=== PATIENT | male | born 1965 | race African-American/Black ===

== ENCOUNTER 2020-09-30 21:55 | Emergency (ER) | payer MEDICAID ==
[~2020-09-30] VITALS: Ht 172.7 cm; Wt 77.1 kg
--- NOTE | 2020-09-30 21:55 | NUR ---
PT ARRIVED TO ED BIBA W/ CC INTENTIONAL OVERDOSE. PT TOLD EMS HE TOOK AROUND 30 PILLS OF TEMAZEPAM AT 30 MG. A&OX3. PT REFUSED TO RESPOND TO QUESTIONS. MINIMAL INFORMATION OBTAINED. BREATHING IS UNLABORED. NO SIGNS OF DISTRESS. VS ARE STABLE. PLACED ON LABEL STAMPER. DENIES PMH. DENIES ANY ALLERGIES.
[2020-09-30 22:00] VITALS: BP 140/90
--- NOTE | 2020-09-30 22:00 | NUR ---
ERMD AT BEDSIDE EVALUATING PT.
--- NOTE | 2020-09-30 22:00 | NUR ---
PD AT BEDSIDE. WILL NOT CURRENTLY PLACE PT ON 5150 HOLD. PT IS NOT ANSWERING QUESTIONS.
--- NOTE | 2020-09-30 22:19 | NUR ---
CALLED POISON CONTROL AND SPOKE TO VIDHYA. PHONE NUMBER [phone]. SHE STATED THT DR. ABBOTT ALREADY HAD CALLED TO REPORT THE OVERDOSE. SUPPORTIVE CARE WAS INSTRUCTED.
[2020-09-30 22:40] LABS: BASOPHILS % (AUTO) 0.4 % (0.0-2.0); EOSINOPHILS # (AUTO) 0.1 K/uL (0-0.4); HEMOGLOBIN 13.6 g/dL (12.0-18.0); LYMPHOCYTES # (AUTO) 1.7 K/uL (2.0-11.5); LYMPHOCYTES % (AUTO) 13.7 % (20.5-51.1); MEAN CORPUSCULAR HEMOGLOBIN 30 pg (27-31); MEAN CORPUSCULAR HGB CONC 33 g/dL (33-37); MEAN CORPUSCULAR VOLUME 91.7 fL (80-94); MONOCYTES # (AUTO) 1.7 K/uL (0.8-1.0); MONOCYTES % (AUTO) 14.2 % (1.7-9.3); NEUTROPHILS # (AUTO) 8.6 K/uL (1.8-7.7); NEUTROPHILS % (AUTO) 70.7 % (42.2-75.2); PLATELET COUNT (AUTO) 359 K/uL (140-450); RED BLOOD CELL COUNT(AUTO) 4.48 MIL/uL (4.20-6.10); RED CELL DISTRIBUTION WIDTH 14.9 % (11.6-13.7); WHITE BLOOD COUNT (AUTO) 12.1 K/uL (4.8-10.8)
--- NOTE | 2020-09-30 22:40 | NUR ---
CHARGE NURSE AT BEDSIDE INSERTING STRAIGHT CATH FOR UDS/UA URINE SAMPLE.
[2020-09-30 22:58] LABS: ALBUMIN 3.7 g/dL (3.4-5.0); ANION GAP 11.2 (8-16); ASPARTATE AMINOTRANSFERASE 21 U/L (15-37); CARBON DIOXIDE 29.5 mmol/L (21-32); CHLORIDE 103 mmol/L (98-107); CREATININE 1.4 mg/dL (0.6-1.3); GFR ARICAN-AMERICAN 67 mL/min (>90); GLUCOSE 90 mg/dL (74-106); POTASSIUM 3.7 mmol/L (3.5-5.1); SODIUM SERUM 140 mmol/L (136-145); TOTAL BILIRUBIN 0.4 mg/dL (0.0-1.0); UREA NITROGEN, BLOOD 18 mg/dL (7-18)
[2020-09-30 22:58] LABS: APPEARANCE,URINE CLEAR (CLEAR); BILIRUBIN,URINE NEGATIVE (NEGATIVE); BLOOD, URINE 2+ (NEGATIVE); COLOR,URINE YELLOW (YELLOW); LEUKOCYTE ESTERASE ,URINE TRACE (NEGATIVE); NITRITE, URINE NEGATIVE (NEGATIVE); PH,URINE 5.5 (5.0-9.0); UGLUCOSE NEGATIVE (NEGATIVE)
[2020-09-30 23:01] LABS: ACETAMINOPHEN < 0.5 ug/ml (10-30); SALICYLATE < 2.8 mg/dL (2.8-20.0)
[2020-09-30 23:11] LABS: BARBITURATE, URINE NEGATIVE ng/ml (NEG <=200); BENZODIAZEPINE, URINE POSITIVE ng/mL (NEG <=200); CANNABINOID, URINE POSITIVE ng/mL (NEG <=50); COCAINE, URINE NEGATIVE ng/mL (NEG <=300); OPIATE, URINE NEGATIVE ng/mL (NEG <=2000); PHENCYCLIDINE SCREEN,URINE NEGATIVE ng/mL (NEG <=25)
[2020-09-30 23:12] LABS: RBC,URINE 11-20 (MOD) /HPF (0-5)
[2020-09-30 23:13] LABS: WBC,URINE 0-5 /HPF (0-5)
--- NOTE | 2020-09-30 23:13 | NUR ---
VS ARE STABLE. PT IS ASLEEP. BREATHING IS UNLABORED. PT IS DROWSY. STIMULATED WITH LIGHT PAIN AND CALLING BY NAME.
[2020-09-30 23:18] LABS: TRICHOMONAS,URINE Rare /HPF (None Seen)
--- NOTE | 2020-10-01 00:19 | NUR ---
PT ASLEEP. NO RESPIRATORY DISTRESS NOTED. VS STABLE. WILL CONTINUE TO MONITOR.
[2020-10-01] MEDS ORDERED: ONDANSETRON 4 MG/2 ML VIAL ONE (01:11)
[2020-10-01] MEDS ORDERED: NACL 0.9% 1,000 ML IV ONE ×2 (01:15→02:15)
[2020-10-01] MEDS ORDERED: ONDANSETRON 4 MG/2 ML VIAL IVP ONE (01:15)
--- NOTE | 2020-10-01 01:25 | NUR ---
PT HAD AN EPISODE OF EMESIS. LARGE IN AMOUNT AND BROWN IN COLOR. PT WAS TURNED TO THE SIDE AND CLEANED UP. PT WAS GIVEN ZOFRAN FOR NAUSEA. PT STOPPED VOMITING.
[2020-10-01] MEDS ORDERED: metroNIDAZOLE 500 MG/NS PREMIX 100 ML IV SCH (02:11)
--- NOTE | 2020-10-01 03:10 | NUR ---
PT WAS READJUSTED IN BED. PULLED UP TO HIGH FOWLERS POSITION FOR ASPIRATION PRECAUTIONS. PT OPENED EYES WHEN CALLED BY NAME. NO VERBAL RESPONSE NOTED. BREATHING IS UNLABORED. NO DISTRESS AT THIS TIME.
[2020-10-01] MEDS ORDERED: LORazepam 2 MG/ML VIAL IVP ONE ×2 (04:30→06:35)
--- NOTE | 2020-10-01 04:33 | NUR ---
PT WAS AGITATED AND ANXIOUS. ATTEMPTED TO PULL OFF IV AND OTHER EQUIPMENT. PT WAS ATTEMPTING TO GET OUT OF BED. PT WAS GIVEN ATIVAN FOR ANXIETY IVP. BP WAS 130/81 PRIOR TO ADMINISTRATION. WILL CONTINUE TO MONITOR PT. HE WAS READJUSTED IN BAD WITH HOB AT A 45 DEGREE ANGLE.
--- NOTE | 2020-10-01 05:13 | NUR ---
VS ARE STABLE. PT IS ASLEEP AND CALM. NO RESPIRATORY DISTRESS NOTED.
[2020-10-01] MEDS ORDERED: LORazepam 2 MG/ML VIAL ONE (06:35)
[2020-10-01] MEDS ORDERED: HALOPERIDOL IM 5 MG/ML VIAL IM ONE ×2 (06:45→08:55)
--- NOTE | 2020-10-01 06:50 | NUR ---
PT IS VERY AGITATED AND ANXIOUS. SHOWING A LOT OF PHYSICAL AGGRESSION TOWARDS STAFF. TOOK MULTIPLE STAFF MEMBERS TO KEEP HIM IN BED. PT WAS REDIRECTED AND STIMULI WAS DECREASED PRIOR TO PLACING PT IN RESTRAINTS. PT PLACED IN FOUR POINT RESTRAINTS. WILL MONITOR PT.
--- NOTE | 2020-10-01 07:11 | NUR ---
RECEIVED HANDOFF FROM DIRECTOR TALENT RN FOR CONTINUITY OF CARE
--- NOTE | 2020-10-01 07:11 | NUR ---
ENDORSED PT TO DAY SHIFT NURSE FOR CONTINUITY OF CARE. PT IS IN FOUR POINT RESTRAINTS AT THIS TIME. PLAN OF CARE DISCUSSED.
--- NOTE | 2020-10-01 07:20 | NUR ---
DR. Arora PLACED INCORRECT ORDER FOR NONBEHAVIOR RESTRAINTS Q 24H. SPOKE TO AM DR. STEVENS AND SHE PLACED A VERBAL ORDER FOR BEHAVIORAL RESTRAINTS ONCE. CHARGE NURSE PLACED ORDER FOR BEHAVIORAL RESTRAINTS.
--- NOTE | 2020-10-01 07:24 | NUR ---
WHEN RECEIVED PT, HAD PLACED ORDER FOR NON-BEHAVIORAL RESTRAINTS WHEN IT SHOULD HAVE BEEN BEHAVIORAL. MADE AWARE AND NEW ORDER FOR BEHAVIORAL RESTRAINTS PLACED AT 0724. WILL RESUME CHARTING Q 15 MIN STARTING AT 0724
--- NOTE | 2020-10-01 08:40 | NUR ---
Dr. Becerra at pt bedside for further evaluation.
[2020-10-01] MEDS ORDERED: HALOPERIDOL IM 5 MG/ML VIAL IVP ONE (08:45)
[2020-10-01] MEDS ORDERED: HALOPERIDOL IM 5 MG/ML VIAL ONE (08:45)
--- NOTE | 2020-10-01 08:52 | NUR ---
Pt given haldo 5mg IM to left deltoid per Dr. Washburn verbal order. Pharmacy notified, spoke with tech. Lila
--- NOTE | 2020-10-01 09:01 | NUR ---
SPOKE TO EMELIA FROM POISION CONTROL. PER EMELIA, POISON CONTROL DOES NOT EXPECT ANY FUTHER WORSENING OF SYMPTOMS, SO SUPPORTIVE CARE CAN JUST BE CONTINUED. IF THE PT'S CONDITION WORSENS, EMELIA STATED WE CAN REACH OUT TO POISON CONTROL AGAIN FOR ASSISTANCE
--- NOTE | 2020-10-01 09:40 | NUR ---
PATIENT RESTING WITH EYES CLOSED, CALM AT THIS TIME. RESTRAINTS REMOVED AT THIS TIME.
--- NOTE | 2020-10-01 12:00 | NUR ---
PT REMAINS RESTING WITH EYES CLOSED, RESPIRATIONS EVEN AND UNLABORED. NO SIGNS OF DISTRESS. VSS
--- NOTE | 2020-10-01 14:15 | NUR ---
PT REMAINS RESTING WITH EYES CLOSED, RESPIRATIONS EVEN AND UNLABORED. NO SIGNS OF DISTRESS. VSS
--- NOTE | 2020-10-01 16:39 | NUR ---
PT HAD EPISODE OF INCONTINENCE. CLEANED PT, REMOVED CLOTHES AND PLACED THEM IN BELONGINGS BAG. CHANGED SHEETS AND PLACED GOWN ON PT.
--- NOTE | 2020-10-01 19:12 | NUR ---
Note johnnyone in EDM - 10/01/20 at 1912 by [email or web address] RECIEVED REPORT FROM ANGI ROCHE FOR CHANGE OF SHIFT. PATIENT CURRENTLY RESTING IN BED COMFORTABLY. NO NOTED DISTRESS. RESPIRATIONS EVEN AND UNLABORED. VSS.
--- NOTE | 2020-10-01 19:12 | NUR ---
HANDOFF GIVEN TO IMPREGNATOR [employer] RN FOR CONTINUITY OF CARE
--- NOTE | 2020-10-01 19:13 | NUR ---
RECIEVED REPORT FROM ANGI ROCHE FOR CHANGE OF SHIFT. PATIENT CURRENTLY RESTING IN BED COMFORTABLY. NO NOTED RESPIRATORY DISTRESS. RESPIRATIONS EVEN AND UNLABORED. VSS. BED LOCKED AND IN LOWEST POSITION. BED RAILS X 2.
--- NOTE | 2020-10-01 21:05 | NUR ---
Patient appears to be resting comfortably in bed. Vital Signs within normal limits. Respirations even and unlabored. NO NOTED DISTRESS AT THIS TIME.
--- NOTE | 2020-10-01 23:10 | NUR ---
Patient appears to be resting comfortably in bed. Respirations even and unlabored. NO NOTED DISTRESS AT THIS TIME.
--- NOTE | 2020-10-01 23:22 | NUR ---
PATIENTS MOTHER, JOSE ENRIQUE, CALLED REQUESTING UPDATE REGARDING PATIENT CONDITION. EXPLAINED TO HER THAT SHE IS NOT LISTED UNDER PATIENTS DEMOGRAPHICS AND UNABLE TO RECIEVE VERBAL CONSENT FROM PATIENT AT THIS TIME TO SHARE INFORMATION. PATIENTS MOTHER VERBALIZED UNDERSTANDING. JOSE ENRIQUE [phone]
--- NOTE | 2020-10-02 00:49 | NUR ---
Patient appears to be resting comfortably in bed. Vital Signs within normal limits. Respirations even and unlabored. NO APPARENT DISTRESS NOTED.
--- NOTE | 2020-10-02 02:10 | NUR ---
Patient appears to be resting comfortably in bed. Vital Signs within normal limits. Respirations even and unlabored. NO NOTED DISTRESS AT THIS TIME.
--- NOTE | 2020-10-02 04:20 | NUR ---
Patient appears to be resting comfortably in bed. Vital Signs within normal limits. Respirations even and unlabored. PERINEAL CARE PERFORMED AND BED LINEN CHANGED. PATIENT POSITIONED FOR COMFORT. PATIENT TOLERATED WELL.
--- NOTE | 2020-10-02 06:15 | NUR ---
Patient appears to be resting comfortably in bed. Vital Signs within normal limits. Respirations even and unlabored. NO NOTED DISTRESS AT THIS TIME.
--- NOTE | 2020-10-02 06:54 | NUR ---
Dr. Orta examining patient.
--- NOTE | 2020-10-02 07:00 | NUR ---
PATIENT WOKEN UP AND ORIENTED TO TIME. REPOSITIONED IN BED WITH HOB ELEVATED. MEAL ORDERED AND TELE PSYCH REQUESTEST PER ERMD ORDER. PATIENT TOLERATED AND COOPERATIVE AT THIS TIME.
--- NOTE | 2020-10-02 07:24 | NUR ---
REPORT GIVEN TO ANGI COMER FOR CHANGE OF SHIFT REPORT.
--- NOTE | 2020-10-02 07:24 | NUR ---
Note jesus in [facility] - 10/02/20 at 0724 by [facility] REPORT GIVEN TO ANGI COMER FOR CHANGE OF SHIFT REPORT.
--- NOTE | 2020-10-02 08:18 | NUR ---
Telepsyhiatry consultation ordered as requested by Dr. Orta.
--- NOTE | 2020-10-02 10:58 | NUR ---
Adrian Boss, the patient's brother, may be reached at [phone].
--- NOTE | 2020-10-02 11:00 | NUR ---
Dr. Kelley is evaluating the patient via telepsychiatry.
--- NOTE | 2020-10-02 11:00 | NUR ---
UPDATE GIVEN TO PT'S BROTHER - JENNIFER
--- NOTE | 2020-10-02 12:33 | NUR ---
[place] [facility] AT BEDSIDE SPEAKING WITH PATIENT
--- NOTE | 2020-10-02 12:39 | NUR ---
PT PLACED ON 5150 HOLD FOR DANGER TO SELF
--- NOTE | 2020-10-02 16:38 | NUR ---
Sunitha Alvarado, the patient's mother, may be reached at [phone].
--- NOTE | 2020-10-02 16:40 | NUR ---
UPDATE GIVEN TO PT'S BROTHER (JENNIFER) AND MOTHER (JENSEN)
--- NOTE | 2020-10-02 17:43 | NUR ---
REPORT GIVEN TO QIANA WHITLEY IN [facility]
--- NOTE | 2020-10-02 19:13 | NUR ---
[facility] AT BEDSIDE
[2020-10-02 19:16] VITALS: BP 142/74
--- NOTE | 2020-10-02 19:16 | NUR ---
Report provided to [facility], personal belongings handed to [facility], pt trasnferred to [facility] at this this time.
--- NOTE | 2020-10-02 19:17 | NUR ---
Updated Jean Dickinson that pt is currently leaving our facility
--- NOTE | 2020-10-02 19:19 | NUR ---
PT TAKEN BY [facility]
[2020-10-02] MEDS ORDERED: MIRTAZAPINE 15 MG TAB PO SCH (21:00)
[2020-10-03] MEDS ORDERED: buPROPion 75 MG TAB PO SCH (09:00)
== END 2020-10-02 19:19 ==
LOC: MED 21:55
DX: T42.4X2A Poisoning by benzodiazepines, intentional self-harm, initial encounter (principal); R45.851 Suicidal ideations; Y92.89 Other specified places as the place of occurrence of the external cause; F17.210 Nicotine dependence, cigarettes, uncomplicated; Z20.822 Contact with and (suspected) exposure to COVID-19
CPT/HCPCS: 36415; 80053; 80305; 81001; 85025; 87426; 93005; 96361; 96365; 96372; 96375; 96376; 99285; G0480; G0482; J1630; J2060; J2405; J3490; U0003; J7030